=== PATIENT | female | born 1960 | race Caucasian/White ===

== ENCOUNTER 2016-10-10 05:21 | Day surgery (SDC) | payer MEDICAID ==
[~2016-10-10] VITALS: Ht 162.6 cm; Wt 72.7 kg
[~2016-10-10 05:21] MED LIST: ALPR-475 PO; ASPI1TAB2 PO; QUET150T PO
[2016-10-10] MEDS ORDERED: LACTATED RINGERS 1,000 ML IV SCH (06:17)
[2016-10-10 06:51] VITALS: BP 103/69
[2016-10-10] MEDS ORDERED: HYDROmorphone 1 MG/ML, 1ML IV PRN (07:30)
[2016-10-10] MEDS ORDERED: ONDANSETRON 2MG/ML, 2ML IVPush PRN (07:30)
[2016-10-10] MEDS ORDERED: OXYcodone 5 MG/5 ML ORAL.SOL UDC PO PRN (07:30)
[2016-10-10] MEDS ORDERED: FENTANYL PF 100 MCG/2ML IV PRN (07:30)
[2016-10-10] MEDS ORDERED: ACETAMINOPHEN 325 MG TABLET PO PRN (07:30)
[2016-10-10] MEDS ORDERED: PROPOFOL 10 MG/ML, 20ML ONE (08:14)
[2016-10-10] MEDS ORDERED: PHENYLEPHRINE 10 MG/ML ONE (08:14)
[2016-10-10] MEDS ORDERED: DEXAMETHASONE 4 MG/ML, 1ML ONE (08:14)
[2016-10-10] MEDS ORDERED: ONDANSETRON 2MG/ML, 2ML ONE (08:14)
[2016-10-10] MEDS ORDERED: CEFAZOLIN 1,000 MG ONE (08:14)
[2016-10-10] MEDS ORDERED: KETOROLAC 30 MG/1 ML ONE (09:24)
[2016-10-10] MEDS ORDERED: OXYcodone 5 MG/5 ML ORAL.SOL UDC ONE (09:24)
[2016-10-10] MEDS ORDERED: KETOROLAC 30 MG/1 ML IV PRN (09:30)
[2016-10-10] MEDS ORDERED: OMNIPAQUE 350 MG/ML, 50 ML BOTTLE ONE (10:12)
[2016-10-10] MEDS ORDERED: QUETIAPINE FUMARATE 300 MG PO SCH (21:00)
== END 2016-10-10 11:30 | disposition home or self-care (01) ==
LOC: OUT 05:21
PROVIDERS: ATTEND Urology
DX: N20.0 Calculus of kidney (principal); J44.9 Chronic obstructive pulmonary disease, unspecified; F17.200 Nicotine dependence, unspecified, uncomplicated; Z87.39 Personal history of other diseases of the musculoskeletal system and connective tissue; F41.9 Anxiety disorder, unspecified
CPT/HCPCS: 52353; 74420; 93005; C1758; C1769; J0690; J1100; J1170; J1885; J2250; J2370; J2405; J2704; J3010; J7120; Q9967